=== PATIENT | female | born 1995 | race Hispanic/Latino ===

== ENCOUNTER 2018-02-01 19:26 | Emergency (ER) | payer OTHER ==
[2018-02-01] MEDS ORDERED: Lidocaine 1% 20 ML MDV ONE (19:36)
[2018-02-01] MEDS ORDERED: Adacel (T-DAP) 0.5 ML VIAL ONE (20:36)
== END 2018-02-01 21:30 | disposition home or self-care (01) ==
LOC: SCSER 19:26
DX: S61.412A Laceration without foreign body of left hand, initial encounter (principal); F41.9 Anxiety disorder, unspecified; Z79.899 Other long term (current) drug therapy; W26.0XXA Contact with knife, initial encounter
CPT/HCPCS: 12002; 90471; 90715; J2001